=== PATIENT | female | born 1975 | race Caucasian/White ===

== ENCOUNTER → 2019-04-30 | Day surgery (SDC) | payer BC, OTHER ==
[~2019-04-30] MED LIST: LIDOCAINE 1%/EPINEPHRINE INJ 20 ML VIAL ONE
--- NOTE | 2019-04-30 09:29 | Discharge Summary ---
Discharge Summary (SDC) - Discharge Final Diagnosis: Multiple microcalcifications left breast Date of Surgery: 04/30/19 Discharge Date: 04/30/19 Condition: Good Treatment or Instructions: Wear supportive bra; may take Tylenol alternating with Motrin; resume preoperative medications, diet, activity; follow-up with Dr. Portillo [place] [facility] in 1 to 2 weeks. Referrals: GIANNI BRADLEY MD [Primary Care Provider] - Discharge Diet: As Tolerated Discharge Activity: Activity As Tolerated Home Care Assistance: None Needed Report the Following to Your Physician Immediately: Shortness of Breath, Increase in Pain, Fever over 101 Degrees, Swelling
--- NOTE | 2019-04-30 09:34 | Operative Report ---
Operative Report DATE OF SURGERY: 04/30/19 PREOPERATIVE DIAGNOSIS: 1. Abnormal clustered microcalcifications upper lateral aspect of the left breast. 2. Smoker POSTOPERATIVE DIAGNOSIS: Same OPERATION: 1. Stereotactically directed incision mammotomy core biopsies left breast microcalcifications. 2. Interpretation of intraoperative mammography. 3. Interpretation specimen radiograph. 4. Placement of clip marker left breast biopsy cavity SURGEON: TANYA HOUSER ANESTHESIA: Local TISSUE REMOVED OR ALTERED: Multiple cores left breast COMPLICATIONS: None ESTIMATED BLOOD LOSS: Scant INTRAOPERATIVE FINDINGS: See below PROCEDURE: The patient was taken from the waiting area in the radiology department to the stereotactic room where she is placed in the prone position on the stereotactic table with the left breast placed into compression. The target microcalcifications the upper outer aspect of the left breast were localized. Surgical plan surgical timeout were conducted. The anterior surface of the left breast was prepped with Betadine, anesthetized 1% plain lidocaine. A small incision was made with a #11 blade, opened with a micro hemostats, and the mammotome advanced to the appropriate depth. Pre-and post fire films showed good alignment between the mammotome and the target microcalcifications. We now proceeded to perform circumferential biopsy under vacuum. Specimens were acquired placed on a Camacho dish and imaged with the portable radiograph imaging machine. This showed retention of multiple microcalcifications. A clip marker was now deployed in the biopsy cavity. There is no hematoma. Post clip deployment images showed retention of clip in the biopsy cavity. The patient tolerated the procedure well. She is taken out of compression and a appropriate dressing applied. Patient will now be taken to the formal mammography suite for completion left mammogram. Discharge instructions provided.
--- NOTE | 2019-05-04 16:54 | RADIOLOGY REPORT (SQ) ---
EXAM DESCRIPTION: STEREO BREAST BX; BREAST SPECIMEN; LEFT DIAGNOSTIC MAMMO W/CAD COMPLETED DATE/TIME: 05/04/2019 1:09 pm; 05/04/2019 1:12 pm; 04/30/2019 10:03 am REASON FOR STUDY: R92.0 MAMMOGRAPHIC MICROCALCIFICATION FOUND ON DX IMAGING OF BRST; R92.0 BREAST SP ECIMEN; POST STEREO R92.0 MAMMOGRAPHIC MICROCALCIFICATION FOUND ON DX IMAGING OF COMPARISON: None. LIMITATIONS: None. PROCEDURE: Vacuum-assisted stereotactic-guided biopsy of the lesion in the left breast targeted and performed by Dr. Jones, the operating surgeon. Procedure and post-procedure imaging interpreted b y a radiologist. Using stereotactic guidance, a vacuum-assisted core biopsy of the targeted lesion was performed. A p ellet clip was deployed at the biopsy site. Post procedure image reveals the clip at the biopsy site . TECHNIQUE: Images from the stereotactic unit acquired during the procedure. Specimen radiography performed. Yes. Post- procedure image acquired post-clip placement. Yes. Post procedure 2 view mammograms performed in the mammography suite for clip placement. Yes. FINDINGS: SPECIMEN RADIOGRAPH:Calcifications identified.. POST PROCEDURE MAMMOGRAMS FOR MARKER PLACEMENT: Yes. POST PROCEDURE MAMMOGRAM: Clip is in expected location. No significant hematoma. PATHOLOGY: Fibrocystic changes and a both brain metaplasia with calcium oxalate deposits. Negative f or atypia or malignancy CONCORDANT: Yes. The operating surgeon was notified of the findings. IMPRESSION: SUCCESSFUL STEREOTACTIC-GUIDED BIOPSY OF LESION IN THE LEFT BREAST. BIOPSY RESULTS ARE CONCORDANT WITH IMAGING FINDINGS. FOLLOW-UP: PER SURGEON Benign findings, BI-RADS 2 TECHNICAL DOCUMENTATION: JOB ID: [id number] [employer]- All Rights Reserved Reading location - IP/workstation name: [email or web address]
== END ==
LOC: RAD 08:09
PROVIDERS: ATTEND Surgery
DX: R92.0 Mammographic microcalcification found on diagnostic imaging of breast (principal); N60.12 Diffuse cystic mastopathy of left breast
CPT/HCPCS: 88305 ×2; 88342; 19081; 77065; J3490

== ENCOUNTER → 2019-05-01 | Outpatient (CLI) | payer BC ==
--- NOTE | 2019-05-04 16:54 | WOMENS IMAGING REPORT ---
EXAM DESCRIPTION: STEREO BREAST BX; BREAST SPECIMEN; LEFT DIAGNOSTIC MAMMO W/CAD COMPLETED DATE/TIME: 05/04/2019 1:09 pm; 05/04/2019 1:12 pm; 04/30/2019 10:03 am REASON FOR STUDY: R92.0 MAMMOGRAPHIC MICROCALCIFICATION FOUND ON DX IMAGING OF BRST; R92.0 BREAST SP ECIMEN; POST STEREO R92.0 MAMMOGRAPHIC MICROCALCIFICATION FOUND ON DX IMAGING OF COMPARISON: None. LIMITATIONS: None. PROCEDURE: Vacuum-assisted stereotactic-guided biopsy of the lesion in the left breast targeted and performed by Dr. Jones, the operating surgeon. Procedure and post-procedure imaging interpreted b y a radiologist. Using stereotactic guidance, a vacuum-assisted core biopsy of the targeted lesion was performed. A p ellet clip was deployed at the biopsy site. Post procedure image reveals the clip at the biopsy site . TECHNIQUE: Images from the stereotactic unit acquired during the procedure. Specimen radiography performed. Yes. Post- procedure image acquired post-clip placement. Yes. Post procedure 2 view mammograms performed in the mammography suite for clip placement. Yes. FINDINGS: SPECIMEN RADIOGRAPH:Calcifications identified.. POST PROCEDURE MAMMOGRAMS FOR MARKER PLACEMENT: Yes. POST PROCEDURE MAMMOGRAM: Clip is in expected location. No significant hematoma. PATHOLOGY: Fibrocystic changes and a both brain metaplasia with calcium oxalate deposits. Negative f or atypia or malignancy CONCORDANT: Yes. The operating surgeon was notified of the findings. IMPRESSION: SUCCESSFUL STEREOTACTIC-GUIDED BIOPSY OF LESION IN THE LEFT BREAST. BIOPSY RESULTS ARE CONCORDANT WITH IMAGING FINDINGS. FOLLOW-UP: PER SURGEON Benign findings, BI-RADS 2 TECHNICAL DOCUMENTATION: JOB ID: [id number] [employer]- All Rights Reserved Reading location - IP/workstation name: [email or web address]
== END ==
LOC: WI 09:50
PROVIDERS: ATTEND Obstetrics & Gynecology Gynecology
DX: R92.0 Mammographic microcalcification found on diagnostic imaging of breast (principal)
CPT/HCPCS: 76098